=== PATIENT | male | born 1945 | race Caucasian/White ===

== ENCOUNTER 2025-05-29 10:36 | Day surgery (SDC) | payer MEDICARE, BC ==
[~2025-05-29] VITALS: Ht 167.6 cm; Wt 94.2 kg
[~2025-05-29 10:36] MED LIST: AZIT250 PO; Aspir 8181 MG PO; Balanced Salt Epinephrine Irrigation Solution 500 mL IR SCH; Moxifloxacin HCL 0.5 MG/0.1 ML 0.4MLSYR RIGHTEYE SCH; Ondansetron 4 MG SoluTab MM PRN; PHENYLEPHRINE\\TROPICAMIDE\\TETRACAINE OPHTHALMIC DILATING SOLN RIGHTEYE PRN; Povidone-Iodine 450 DROP/30 ML Solution ONE; Povidone-Iodine 450 DROP/30 ML Solution RIGHTEYE SCH; Prinivil10 MG PO; Tetracaine HCl/Pf 0.5% Opth Soln 4 ml ONE; diazePAM 5 MG,diazePAM 2 MG PO SCH
--- NOTE | 2025-05-29 11:28 | NUR ---
05/29/25 1128 Derek Allen 7MG OF VALIUM GIVEN, ANXIETY 09/22. TETRACAIN DROP IN RIGHT AT 1119. PLEGET PLACED IN RIGHT EYE AT 1121. PULSE OX ON PT, 95% ON ROOM AIR. CALL LIGHT IN HAND.
--- NOTE | 2025-05-29 12:13 | NUR ---
05/29/25 1213 Trisha Schumacher HR:52 BP:153/70 RR:16 SPO2:99% ON 10L BLOW BY O2 NO SIGNS OR SYMPTOMS OF DISTRESS, PT TOLERATED WELL
[2025-05-29 12:18] VITALS: BP 129/71
== END 2025-05-29 12:31 | disposition home or self-care (01) ==
LOC: ORSCSDS 10:36
PROVIDERS: Student in an Organized Health Care Education/Training Program
PROC: 08RJ3JZ Replacement of Right Lens with Synthetic Substitute, Percutaneous Approach (ICD-10-PCS; principal; 2025-05-29 14:30)
DX: H25.813 Combined forms of age-related cataract, bilateral (principal); I10 Essential (primary) hypertension; Z79.82 Long term (current) use of aspirin; Z79.899 Other long term (current) drug therapy
CPT/HCPCS: A9270; V2632

== ENCOUNTER 2025-06-12 09:38 | Day surgery (SDC) | payer MEDICARE, BC ==
[~2025-06-12] VITALS: Ht 167.6 cm; Wt 95.5 kg
[~2025-06-12 09:38] MED LIST changes: +Moxifloxacin HCL 0.5 MG/0.1 ML 0.4MLSYR LEFTEYE SCH; -Moxifloxacin HCL 0.5 MG/0.1 ML 0.4MLSYR RIGHTEYE SCH; +PHENYLEPHRINE\\TROPICAMIDE\\TETRACAINE OPHTHALMIC DILATING SOLN LEFTEYE PRN; -PHENYLEPHRINE\\TROPICAMIDE\\TETRACAINE OPHTHALMIC DILATING SOLN RIGHTEYE PRN; +Povidone-Iodine 450 DROP/30 ML Solution LEFTEYE SCH; -Povidone-Iodine 450 DROP/30 ML Solution RIGHTEYE SCH
--- NOTE | 2025-06-12 10:00 | NUR ---
06/12/25 Verónica Levy 0959: 7 MG PO VALIUM GIVEN PER ORDERS. PULSE OX ON FINGER, CALL LIGHT IN HAND. INITIAL ANXIETY 2/10 PER PT REPORT
[2025-06-12] MEDS ORDERED: PROBIOTIC 10 (10:05)
[2025-06-12] MEDS ORDERED: ASCO500 (10:05)
[2025-06-12] MEDS ORDERED: ERGO400 (10:05)
[2025-06-12] MEDS ORDERED: PROSTATE (10:06)
[2025-06-12] MEDS ORDERED: [UNRECOGNIZED DRUG - OTHER] (10:06)
[2025-06-12] MEDS ORDERED: [UNRECOGNIZED DRUG - OTHER] (10:06)
[2025-06-12] MEDS ORDERED: Milk Thistle175 M1 (10:06)
[2025-06-12] MEDS ORDERED: ZINC15 (10:06)
[2025-06-12] MEDS ORDERED: [UNRECOGNIZED DRUG - OTHER] (10:08)
[2025-06-12] MEDS ORDERED: OMEGA 3 (10:09)
[2025-06-12] MEDS ORDERED: [UNRECOGNIZED DRUG - OTHER] (10:09)
[2025-06-12] MEDS ORDERED: TUMERIC (10:09)
[2025-06-12] MEDS ORDERED: [UNRECOGNIZED DRUG - OTHER] (10:10)
[2025-06-12] MEDS ORDERED: [UNRECOGNIZED DRUG - OTHER] (10:10)
[2025-06-12] MEDS ORDERED: Tetracaine HCl 0.5% Opth Soln 15 ml LEFTEYE ONE (10:28)
--- NOTE | 2025-06-12 10:37 | NUR ---
06/12/25 1037 Marleny Chavarria N 140/71 97% 10L BLOW BY O2 55 18
[2025-06-12 10:47] VITALS: BP 137/71
== END 2025-06-12 10:48 | disposition home or self-care (01) ==
LOC: ORSCSDS 09:38
PROVIDERS: Student in an Organized Health Care Education/Training Program
PROC: 08RK3JZ Replacement of Left Lens with Synthetic Substitute, Percutaneous Approach (ICD-10-PCS; principal; 2025-06-12 11:00)
DX: H25.812 Combined forms of age-related cataract, left eye (principal); Z96.1 Presence of intraocular lens; I10 Essential (primary) hypertension; Z79.899 Other long term (current) drug therapy
CPT/HCPCS: A9270; V2632